=== PATIENT | male | born 1990 | race Caucasian/White ===

== ENCOUNTER 2021-03-27 10:36 | Emergency (ER) | payer MEDICAID ==
[~2021-03-27] VITALS: Ht 172.7 cm; Wt 80.0 kg
[2021-03-27 11:37] LABS: CHLORIDE 105 mEq/L (98-107)
[2021-03-27 11:40] LABS: BASOPHILS % 0.2 % (0.0-2.0); EOSINOPHILS % 0.6 % (0.0-5.0); HEMATOCRIT. 43.9 % (42.0-52.0); HEMOGLOBIN. 15.3 g/dL (14.0-18.0); LYMPHOCYTES % 22.7 % (20.0-50.0); MEAN CORPUSCULAR HEMOGLOBIN 29.6 pg (28.0-32.0); MEAN CORPUSCULAR VOLUME 84.8 fL (80.0-94.0); MEAN PLATELET VOLUME 7.8 fl (7.4-10.4); MONOCYTES % 6.7 % (2.0-8.0); NEUTROPHILS % 69.8 % (40.0-76.0); PLATELET 260 x1000/uL (130-400); RED BLOOD CELL COUNT 5.17 mill/uL (4.7-6.1); RED CELL DISTRIBUTION WIDTH 12.8 % (11.6-14.6)
[2021-03-27 11:41] LABS: PROTHROMBIN TIME 10.8 sec (9.6-11.0)
[2021-03-27] MEDS ORDERED: ONDANSETRON HCL 4MG TABLET PO ONE (13:30)
[2021-03-27] MEDS ORDERED: ACETAMINOPHEN 325MG TABLET PO ONE (13:30)
[2021-03-27 13:53] VITALS: BP 139/73
[2021-03-27] MEDS ORDERED: IOHEXOL-350 100 ML BOTTLE ONE (15:00)
== END 2021-03-27 14:07 | disposition home or self-care (01) ==
LOC: ER 10:36
DX: G43.909 Migraine, unspecified, not intractable, without status migrainosus (principal); R55 Syncope and collapse; M25.562 Pain in left knee; G40.909 Epilepsy, unspecified, not intractable, without status epilepticus
CPT/HCPCS: 36415; 70496; 80053; 85025; 85610; 99285; Q0162; Q9967